=== PATIENT | female | born 1990 | race Caucasian/White ===

== ENCOUNTER → 2017-04-13 | Outpatient (CLI) | payer BC, OTHER ==
--- NOTE | 2017-04-13 13:50 | DIAGNOSTIC IMAGING REPORT ---
R WRIST MIN 3 VIEWS ROUTINE CLINICAL HISTORY: Right wrist pain. Ganglion cyst of dorsum of right wrist. COMPARISON: None FINDINGS: Alignment of the right wrist is anatomic. There is no fracture or osseous lesion. No erosions are identified. There may be slight radiocarpal joint space narrowing with osteophytosis. Lateral view demonstrates soft issue prominence overlying the dorsal aspect of the right wrist with a suspected 1.2 x 1 cm soft tissue lesion. This is suboptimally assessed by radiography. IMPRESSION: Soft tissue lesion of the dorsal right wrist, measuring approximately 1.2 x 1 cm. This is suboptimally assessed by radiography but could reflect a ganglion cyst. Electronically signed by: Dax Fay M.D. 04/13/2017 1:48 PM Dictated Date/Time: 04/13/2017 1:46 PM
== END | disposition home or self-care (01) ==
LOC: C.RDSM 15:12
PROVIDERS: ATTEND Family Medicine
DX: M67.431 Ganglion, right wrist (principal)